=== PATIENT | female | born 1940 | race African-American/Black ===

== ENCOUNTER 2016-06-16 03:15 | Emergency (ER) | payer MEDICARE, OTHER ==
[~2016-06-16] VITALS: Ht 162.6 cm; Wt 113.4 kg
[~2016-06-16 03:15] MED LIST: AMLO10TA2 PO; ASPI-482 PO; BENA20TA2 PO; CALC600T4 PO; CELE200C PO; ESOM40CA PO; HYDR25TA9 PO; MULT-246 PO; POTA10TA5 PO
[2016-06-16] MEDS ORDERED: HYDROMORPHONE 2 MG/ML VIAL. IM ONE (04:30)
[2016-06-16] MEDS ORDERED: ONDANSETRON ODT 4 MG TAB.RAPDIS PO ONE (04:30)
[2016-06-16] MEDS ORDERED: HYDR-2678 PO (05:19)
--- NOTE | 2016-06-16 05:20 | PHYS DOC ---
Past Medical History Past Medical History: Hypertension Past Surgical History: Other Additional Past Surgical Histo: brianne. knee replacement Alcohol Use: None Drug Use: None Adult General Chief Complaint Chief Complaint: MECHANICAL FALL HPI HPI Patient is a 75 year old female who presents to the ER today after falling down approximately 3 AM. Patient reports that she was walking to the bathroom when she tripped over her blanket. Patient denies any dizziness, head trauma, loss of consciousness. Patient's only complaint is pain to her right shoulder. Patient denies any pain to her lower 70s. Patient denies any nausea vomiting diarrhea fevers shaking chills cough cold. Patient has a history of hypertension. No diabetes liver longer kidney problems. Patient has not had any surgery or chest or abdomen. Patient doesn't smoke drink or do drugs. Patient is allergic to any medications. Patient's physical exam is consistent for tenderness to palpation to her right shoulder. Patient has diminished range of motion secondary to pain. There is no bony deformity. Neurovascularly patient is intact. Patient has no tenderness to palpation or range of motion to her elbow or wrist. Patient has no tenderness to palpation to her lower extremities are hip/pelvis. No evidence of any head trauma C-spine T-spine or L-spine pain. Patient's x-ray of her right shoulder is negative for acute fracture. Patient's clavicles negative for fracture. Results were discussed with the patient. Patient was placed in an arm sling. Range of motion exercises were discussed with the patient. Patient be sent home with Lortab. Review of Systems Review of Systems Constitutional: Denies fever or chills [] Eyes: Denies change in visual acuity, redness, or eye pain [] HENT: Denies nasal congestion or sore throat [] Review of systems are negative except as documented in the history of present illness portion. Current Medications Current Medications Current Medications Medications (Trade) Dose Ordered Sig/Kofi Start Time Stop Time Status Last Admin Dose Admin Hydromorphone HCl (Dilaudid) 1 mg 1X ONCE 06/16/16 04:30 06/16/16 04:31 DC 06/16/16 04:17 1 MG Ondansetron HCl (Zofran Odt) 4 mg 1X ONCE 06/16/16 04:30 06/16/16 04:31 DC 06/16/16 04:17 4 MG Allergies Allergies Allergies Coded Allergies Type Severity Reaction Last Updated Verified No Known Drug Allergies 12/15/14 No Physical Exam Physical Exam Constitutional: Well developed, well nourished, no acute distress, non-toxic appearance. [] HENT: Normocephalic, atraumatic, bilateral external ears normal, oropharynx moist, no oral exudates, nose normal. [] Eyes: PERRLA, EOMI, conjunctiva normal, no discharge. [] Neck: Normal range of motion, no tenderness, supple, no stridor. [] Cardiovascular:Heart rate regular rhythm, Lungs & Thorax: Bilateral breath sounds clear to auscultation [] Abdomen: Bowel sounds normal, soft, no tenderness, no masses, no pulsatile masses. [] Skin: Warm, dry, no erythema, no rash. [] Back: No tenderness, no CVA tenderness. [] Extremities: Tenderness to palpation to her right shoulder. Neurologic: Alert and oriented X 3, normal motor function, normal sensory function, no focal deficits noted. [] Psychologic: Affect normal, judgement normal, mood normal. [] Current Patient Data Vital Signs Vital Signs Date Time Temp Pulse Resp B/P Pulse Ox O2 Delivery O2 Flow Rate FiO2 06/16/16 03:15 97.9 54 16 165/83 95 Room Air 97.9 EKG EKG [] Radiology/Procedures Radiology/Procedures [] Right shoulder x-rays negative for fracture. Course & Med Decision Making Course & Med Decision Making Pertinent Labs and Imaging studies reviewed. (See chart for details) [] This is a 75-year-old female with right shoulder injury after a fall. Please see above for full assessment and plan. Dragon Disclaimer Dragon Disclaimer This electronic medical record was generated, in whole or in part, using a voice recognition dictation system. Departure Departure Impression: Primary Impression: Contusion of right shoulder Additional Impression: Shoulder sprain Disposition: HOME, SELF-CARE Condition: IMPROVED Referrals: SRUTHI TIMMONS MD (PCP) Patient Instructions: Arm Sling Use-Brief, Contusion, Fall Prevention and Home Safety, Shoulder Sprain Scripts Hydrocodone/Acetaminophen (Lortab 5-325 mg Tablet)1 Each Tablet1 Tab PO PRN Q6HRS PRN PAIN #20 TAB Prov:WALLY GONZALES MD 06/16/16 Problem Qualifiers WALLY GONZALES MD Jun 16, 2016 05:20
[2016-06-16 05:30] VITALS: BP 115/64
--- NOTE | 2016-06-16 07:29 | RAD ---
Right shoulder, 3 views, 06/16/2016: History: Fall, shoulder pain There are degenerative changes at the glenohumeral articulation with subchondral sclerosis, cyst formation and spurring. There is poor definition of the cortex along the posterior margin of the humeral head on the lateral view. No definite acute fracture or dislocation is identified. IMPRESSION: 1. Moderate glenohumeral degenerative change. 2. No acute bony abnormality is detected. 3. If shoulder pain persists, radiographic follow-up in 7-10 days may be useful in excluding an occult fracture.
== END 2016-06-16 06:20 | disposition home or self-care (01) ==
LOC: ER 03:15
DX: S43.401A Unspecified sprain of right shoulder joint, initial encounter (principal); I10 Essential (primary) hypertension; W01.0XXA Fall on same level from slipping, tripping and stumbling without subsequent striking against object, initial encounter; Y93.01 Activity, walking, marching and hiking; Y92.89 Other specified places as the place of occurrence of the external cause; Y99.8 Other external cause status
CPT/HCPCS: 73030; 96372; 99284; J1170; Q0162

== ENCOUNTER → 2016-11-22 | Outpatient (CLI) | payer MEDICARE, OTHER ==
[~2016-11-22] MED LIST changes: +HYDR-2678 PO
--- NOTE | 2016-11-22 14:43 | RAD ---
Indication: Chronic bilateral lower extremity swelling. Grayscale, color-flow and duplex Doppler evaluation of bilateral lower extremity deep venous systems was performed. FINDINGS: There is no evidence of right or left lower extremity DVT. Both lower extremity deep venous systems showed normal compressibility with normal response to augmentation and Valsalva. No fluid collection or mass is detected. IMPRESSION: No evidence of right or left lower extremity DVT.
== END | disposition home or self-care (01) ==
LOC: US 13:54
PROVIDERS: ATTEND Nurse Practitioner Occupational Health
DX: M25.461 Effusion, right knee (principal); M25.462 Effusion, left knee; M25.561 Pain in right knee
CPT/HCPCS: 93970

== ENCOUNTER → 2016-11-29 | Outpatient (CLI) | payer MEDICARE, OTHER ==
[~2016-11-29] MED LIST changes: +IOHEXOL 300 MG/ML 100ML VIAL. IV ONE
--- NOTE | 2016-11-29 13:28 | KCIC ---
Examination: CT angiography chest HISTORY: History of elevated d-dimer, shortness of breath COMPARISON: None available TECHNIQUE: Axial CT angiography images were performed with IV contrast. Coronal sagittal 3-D MIP reformats are performed. Exposure: One or more of the following individualized dose reduction techniques were utilized for this examination: 1. Automated exposure control 2. Adjustment of the mA and/or kV according to patient size 3. Use of iterative reconstruction technique. FINDINGS: The visualized thyroid gland grossly appears unremarkable. The central airways are patent. Diffuse coronary artery calcifications identified. There is no evidence of filling defect identified in the main pulmonary arterial trunk and right and left main pulmonary arteries. The visualized lobar, segmental branches of the pulmonary arteries demonstrate no evidence of filling defects. There is minimal groundglass airspace opacities identified in the right upper lobe of the lung medially. No evidence of pleural effusion or pneumothorax. There is a tiny 3 mm nodule or lymph node identified in the right upper lobe of the lung. Minimal bibasilar lung atelectasis. The visualized liver, spleen, adrenals grossly appears unremarkable. Partially visualized cystic structure identified in the left kidney measuring 3.9 cm. Tortuous appearing descending thoracic aorta. Moderate degenerative changes thoracic spine. IMPRESSION: 1. No evidence of pulmonary embolism. 2. Minimal groundglass airspace opacities identified in the right upper lobe of the lung medially likely atelectasis. Minimal bibasilar lung atelectasis. 3. A 3 mm nodule or lymph node identified in the right upper lobe of the lung. Follow-up CT in 6-12 months is recommended to document stability. 4. Coronary artery calcifications. Electronically signed by: Fernando Lyon MD (11/29/2016 1:24 PM) [id number]
== END | disposition home or self-care (01) ==
LOC: KCIC CT 10:30
PROVIDERS: ATTEND Nurse Practitioner Occupational Health
DX: I25.10 Atherosclerotic heart disease of native coronary artery without angina pectoris (principal); J98.11 Atelectasis; R79.1 Abnormal coagulation profile; R06.02 Shortness of breath
CPT/HCPCS: 71275; 82565; Q9967

== ENCOUNTER → 2017-01-20 | Outpatient (CLI) | payer MEDICARE, OTHER ==
[~2017-01-20] MED LIST changes: -IOHEXOL 300 MG/ML 100ML VIAL. IV ONE
--- NOTE | 2017-01-20 10:08 | CARD ---
APPROVED REPORT EXAM: Two-dimensional and M-mode echocardiogram with Doppler and color Doppler. Other Information Quality : Good Rhythm : NSR INDICATION Dyspnea on exertion RISK FACTORS Hypertension Obesity 2D DIMENSIONS RVDd3.7 (2.9-3.5cm)Left Atrium(2D)3.5 (1.6-4.0cm) IVSd1.3 (0.7-1.1cm)Aortic Root(2D)3.1 (2.0-3.7cm) LVDd4.4 (3.9-5.9cm)LVOT Diameter2.3 (1.8-2.4cm) PWd1.3 (0.7-1.1cm)LVDs2.7 (2.5-4.0cm) FS (%) 37.4 %SV58.5 ml LVEF(%)67.7 (>50%) Aortic Valve AoV Peak Markel.127.9cm/sAoV VTI21.9cm AO Peak GR.6.5mmHgLVOT Peak Markel.108.2cm/s AO Mean GR.3mmHgAVA (VMAX)3.46cm2 Mitral Valve MV E Lbjdxkij64.4cm/sMV E Peak Gr.3mmHg MV DECEL [id number] A Gfojajjm05.6cm/s MV E Mean Gr.1mmHgE/A Ratio0.6 MV A [id number] Pulmonary Valve PV Peak Excnfgdv965.0cm/s Tricuspid Valve TR P. Bgcbtmwl279ok/sTR Peak Gr.30mmHg Pulmonary Vein S1 Fdscdtyw12.3cm/sD2 Kjudfrkm98.3cm/s PVa lucfxqvi14mjoy LEFT VENTRICLE The left ventricle is normal size. There is mild concentric left ventricular hypertrophy. The left ve ntricular systolic function is normal and the ejection fraction is within normal range. The Ejection Fraction is 60-65%. There is normal LV segmental wall motion. Transmitral Doppler flow pattern is Gra de I-abnormal relaxation pattern. RIGHT VENTRICLE The right ventricle is mildly dilated. There is normal right ventricular wall thickness. The right ve ntricular systolic function is normal. ATRIA The left atrium is mildly dilated. The right atrium size is normal. The interatrial septum is intact with no evidence for an atrial septal defect or patent foramen ovale as noted on 2-D or Doppler imagi ng. AORTIC VALVE The aortic valve is mildly sclerotic. The aortic valve is trileaflet. Doppler and Color Flow revealed no significant aortic regurgitation. There is no significant aortic valvular stenosis. MITRAL VALVE Mitral annular calcification is mild. The mitral valve leaflets are thickened. There is no evidence o f mitral valve prolapse. There is no mitral valve stenosis. Doppler and Color Flow revealed trace gerardo ral regurgitation. TRICUSPID VALVE Doppler and Color Flow revealed trace tricuspid regurgitation. The pulmonary artery systolic pressure is estimated at 33 mmHg. PULMONIC VALVE The pulmonic valve is not well visualized but appears to open adequately. Doppler and Color Flow reve aled trace pulmonic valvular regurgitation. There is no pulmonic valvular stenosis by spectral Dopple r. GREAT VESSELS The aortic root is normal in size. The ascending aorta is normal in size. The pulmonary artery is nor mal. The IVC is normal in size and collapses >50% with inspiration. PERICARDIAL EFFUSION There is no evidence of significant pericardial effusion. Critical Notification Critical Value: No <Conclusion> There is mild concentric left ventricular hypertrophy. The left ventricular systolic function is normal and the ejection fraction is within normal range. Th e Ejection Fraction is 60-65%. There is normal LV segmental wall motion. No significant valvular disease.
== END | disposition home or self-care (01) ==
LOC: ECHO 08:45
PROVIDERS: ATTEND Internal Medicine Cardiovascular Disease
DX: I51.7 Cardiomegaly (principal); R06.09 Other forms of dyspnea
CPT/HCPCS: 93306

== ENCOUNTER → 2017-01-21 | Outpatient (CLI) | payer MEDICARE, OTHER ==
--- NOTE | 2017-01-21 13:27 | RAD ---
APPROVED REPORT Patient Location : OUT-PATIENT Indications Lower Extremity Pain : Bilateral Lower Extremity Edema : Bilateral Risk Factors Obesity Findings Grayscale images the bilateral greater and lesser saphenous veins did not reveal any evidence of thro mbus on limited images. The bilateral ankles were also evaluated and on branch scale images at the leve l of the ankles there were no significant abnormalities noted. The right great saphenous vein measures approximately 7.9 mm and does not reflux significantly. The l eft great saphenous vein measures 5.9 mm and does not reflux significantly. The bilateral lesser saph enous veins do not reveal any evidence of reflux. Critical Notification Critical Value: No <Conclusion> Negative for reflux in the bilateral lesser and greater saphenous veins
== END | disposition home or self-care (01) ==
LOC: US 09:05
PROVIDERS: ATTEND Internal Medicine Cardiovascular Disease
DX: I87.2 Venous insufficiency (chronic) (peripheral) (principal); M79.662 Pain in left lower leg; M79.661 Pain in right lower leg; R60.0 Localized edema
CPT/HCPCS: 93970

== ENCOUNTER 2017-01-31 06:24 | Outpatient (CLI) | payer MEDICARE, OTHER ==
[2017-01-31] VITALS (11 sets, daily range): BP systolic 96–128; BP diastolic 62–82
[~2017-01-31] VITALS: Ht 162.6 cm; Wt 113.4 kg
[2017-01-31] MEDS ORDERED: SPIR50TA2 PO (07:00)
[2017-01-31] MEDS ORDERED: OMEP40CA5 PO (07:00)
[2017-01-31 07:16] LABS: HEMATOCRIT 38.9 % (36.0-47.0); RED BLOOD COUNT 4.05 x10^6/uL (3.50-5.40); RED CELL DISTRIBUTION WIDTH 13.7 % (11.5-14.5)
[2017-01-31 07:22] LABS: CREATININE 1.2 mg/dL (0.6-1.0); GFR 52.9; POTASSIUM 4.6 mmol/L (3.5-5.1)
[2017-01-31 07:30] LABS: INR 1.1 (0.8-1.1); PROTHROMBIN TIME PATIENT 13.1 SEC (11.7-14.0)
[2017-01-31] MEDS ORDERED: LIDOCAINE 2% 20 ML VIAL. ONE (07:41)
[2017-01-31] MEDS ORDERED: IOHEXOL 300 MG/ML 100ML VIAL. ONE (07:41)
[2017-01-31] MEDS ORDERED: NITROGLYCERIN 200 MCG/2 ML SYRINGE FOR CATH/VASC LAB. ONE (07:52)
[2017-01-31] MEDS ORDERED: HEPARIN for IV BOLUS 10,000 UNIT/10 ML VIAL. ONE (07:52)
[2017-01-31] MEDS ORDERED: VERAPAMIL 5 MG/2 ML VIAL. ONE (07:52)
[2017-01-31] MEDS ORDERED: fentaNYL PF VIAL 100 MCG/2 ML VIAL ONE (07:52)
[2017-01-31] MEDS ORDERED: MIDAZOLAM HCL/PF 5 MG/5 ML VIAL. ONE (07:52)
[2017-01-31] MEDS ORDERED: LIDOCAINE 2% 20 ML VIAL. IJ ONE (08:15)
[2017-01-31] MEDS ORDERED: fentaNYL PF VIAL 100 MCG/2 ML VIAL IV ONE (08:15)
[2017-01-31] MEDS ORDERED: IOHEXOL 300 MG/ML 100ML VIAL. IART ONE (08:15)
[2017-01-31] MEDS ORDERED: NITROGLYCERIN 200 MCG/2 ML SYRINGE FOR CATH/VASC LAB. IART ONE (08:15)
[2017-01-31] MEDS ORDERED: HEPARIN for IV BOLUS 10,000 UNIT/10 ML VIAL. IART ONE (08:15)
[2017-01-31] MEDS ORDERED: MIDAZOLAM HCL/PF 5 MG/5 ML VIAL. IV ONE (08:15)
[2017-01-31] MEDS ORDERED: VERAPAMIL 5 MG/2 ML VIAL. IART ONE (08:15)
[2017-01-31] MEDS ORDERED: HEPARIN for IV BOLUS 10,000 UNIT/10 ML VIAL. IV ONE (08:30)
[2017-01-31] MEDS ORDERED: IV 1/2 NORMAL SALINE 1,000 ML IV SCH (08:40)
--- NOTE | 2017-01-31 08:40 | PDOC ---
MODERATE SEDATION ASSESSMENT RISKS/ALTERNATIVES Risks/Alternatives Risks and alternatives of this type of sedation and procedure discussed with: RISK/ALTERNATIVES: Patient H & P ON CHART H & P H & P on chart and reviewed for co-morbid conditions and appropriate labs. H&P ON CHART: Yes STATUS PREG STATUS ASSESSED: N/A MEDS/ALLERGIES REVIEWED Meds/Allergies Reviewed Medications and Allergies including time and route of recently administered narcotics and sedatives. MEDS/ALLERGIES REVIEWED: Yes ASA RATING ASA RATING: II AIRWAY ASSESSMENT Airway Assessment Airway patency, oral function limitations, presence of caps, crowns, dentures, partials, and ability to extend neck assessed. AIRWAY ASSESSMENT: Yes MALLAMPATI SCORE MALLAMPATI SCORE: II PRE-SEDATION ASSESSMENT PRE-SEDATION ASSESSMENT: Yes FAINA SERVIN MD Jan 31, 2017 08:40
--- NOTE | 2017-01-31 09:04 | CARD ---
APPROVED REPORT Procedure(s) performed: 1. Left heart catheterization, selective coronary angiography via right zhao sradial approach 2. Instant wave free ratio (IFR) measurement of left circumflex artery and the obtuse marginal branc h 40 min Sedation Time INDICATION The indication(s) include : Unstable angina and positive stress test. PROCEDURE NARRATIVE After explaining the risks, benefits and alternative options, informed consent was obtained from yusra ent. Patient was brought to the cardiac [employer] and right wrist was prepped and draped in the usual fashion after confirming a positive modified Wade's test. Arterial access was obtained in the [facility] t radial artery and a 6 [place] sheath was inserted. 6 [place] Von catheter was used to perform scooter ective angiography of the left and right coronary arteries. LVEDP and transaortic gradients were krishan ured with the same catheter. Left ventriculography was not performed since recent 2-D echo showed nor mal LV function. Since patient was found to have angiographically suspicious lesions involving the left circumflex art marlene and obtuse marginal branch, a decision was made to perform physiologic assessment using instant w ave free ratio (IFR). The lesions in the left circumflex artery followed by opposite marginal branch were crossed with [employer] and IFR measurements were made that came back at 0.99 and 0.98 respectively. Hence no interventions were undertaken. Patient tolerated the procedure well . Hemostasis was achieved using TR band. There were no immediate complications. The following find ings were noted. FINDINGS 1. Hemodynamics: Left ventricular end-diastolic pressure of 27 mmHg. No pullback gradient across th e aortic valve. 2. Coronary angiography: a. The left main coronary artery arose from the left sinus of Valsalva, gave rise to the left anteri or descending and left circumflex arteries and did not show any significant stenosis. b. The left anterior descending artery did not show any significant stenosis. c. The left circumflex artery showed 50% stenosis involving the midsegment. The obtuse marginal bran ch showed 40-50% stenosis in the proximal to midsegment. These lesions were physiologically not signi ficant based on IFR measurements of 0.99 and 0.98 respectively. d. The right coronary artery was a dominant vessel arising from the right sinus of Valsalva that did not show any significant stenosis. Conclusion Nonobstructive coronary artery disease Recommendations Medical Therapy
== END 2017-01-31 11:25 | disposition home or self-care (01) ==
LOC: CCL 06:24
PROVIDERS: ATTEND Internal Medicine Cardiovascular Disease
DX: I25.10 Atherosclerotic heart disease of native coronary artery without angina pectoris (principal); K21.9 Gastro-esophageal reflux disease without esophagitis; E11.9 Type 2 diabetes mellitus without complications; D64.9 Anemia, unspecified; Z87.39 Personal history of other diseases of the musculoskeletal system and connective tissue; Z79.01 Long term (current) use of anticoagulants; Z96.653 Presence of artificial knee joint, bilateral; Z90.710 Acquired absence of both cervix and uterus
CPT/HCPCS: 36415; 80048; 85027; 85610; 85730; 93458; 93571; 93572; 99152; 99153; C1769; C1892; J1644; J2250; J3010; J3490; Q9967; J2001

== ENCOUNTER → 2017-08-01 | Outpatient (CLI) | payer MEDICARE, OTHER | END | disposition home or self-care (01) | LOC: KCIC MRI 14:55 | DX: M19.011 Primary osteoarthritis, right shoulder (principal); M25.711 Osteophyte, right shoulder; M75.81 Other shoulder lesions, right shoulder | CPT/HCPCS: 73221 ==

== ENCOUNTER → 2017-08-15 | Outpatient (CLI) | payer MEDICARE, OTHER | END | disposition home or self-care (01) | LOC: US 08:01 | DX: M79.604 Pain in right leg (principal); M79.605 Pain in left leg; R06.09 Other forms of dyspnea | CPT/HCPCS: 93970 ==

== ENCOUNTER → 2017-09-05 | Outpatient (CLI) | payer MEDICARE, OTHER | END | disposition home or self-care (01) | LOC: KCIC CT 11:04 | DX: M17.11 Unilateral primary osteoarthritis, right knee (principal) | CPT/HCPCS: 73200 ==

== ENCOUNTER → 2017-09-10 | Outpatient (CLI) | payer MEDICARE, OTHER | END | disposition home or self-care (01) | LOC: US 10:59 | DX: I82.493 Acute embolism and thrombosis of other specified deep vein of lower extremity, bilateral (principal); Z98.890 Other specified postprocedural states | CPT/HCPCS: 93970 ==

== ENCOUNTER → 2017-11-17 | Outpatient (CLI) | payer MEDICARE, OTHER | END | disposition home or self-care (01) | LOC: KCIC CT 11:05 | DX: M47.894 Other spondylosis, thoracic region (principal); I25.10 Atherosclerotic heart disease of native coronary artery without angina pectoris; I77.810 Thoracic aortic ectasia; N28.89 Other specified disorders of kidney and ureter; R91.1 Solitary pulmonary nodule | CPT/HCPCS: 71250 ==

== ENCOUNTER → 2018-02-20 | Day surgery (SDC) | payer MEDICARE, OTHER ==
[~2018-02-20] MED LIST changes: -AMLO10TA2 PO; +AMLO10TA6 PO; -BENA20TA2 PO; +BENA20TA4 PO; +CHOL100013 PO; +IV RINGERS,LACTATED 1000ML 1,000 ML IV SCH; +LIDOCAINE 2% PF 2ML VIAL. ONE; +OMEP40CA5 PO; +POTA10TA12 PO; -POTA10TA5 PO; +PROPOFOL 20 ML IV ONE; +ROPI0.5T PO; +SPIR50TA4 PO
--- NOTE | 2018-02-20 09:25 | HP ---
ADMIT DATE: 02/20/2018 REFERRING PHYSICIAN: Dr. Whyte. REASON: Anemia. HISTORY OF PRESENT ILLNESS: A 77-year-old -[place] female with past medical history significant for hypertension, osteoarthrosis, is seen with anemia. She had maroon stools, with the hospital hemoglobin of 10.6. Prior colonoscopy in 2014 was without polyps. Her heme stools were positive. BUN of 37. INR is 1.2. With this, upper endoscopy is recommended with persistent epigastric pain. PAST MEDICAL HISTORY: Hypertension and anemia. ALLERGIES: None. MEDICATIONS: Include amlodipine, aspirin, benazepril, Celebrex, vitamin D, hydrochlorothiazide, Requip, spironolactone. FAMILY AND SOCIAL HISTORY: Significant for hypertension with multiple family members. SOCIAL HISTORY: Does not drink or smoke. PAST SURGICAL HISTORY: Noncontributory. REVIEW OF SYSTEMS: As per records. PHYSICAL EXAMINATION: GENERAL: Reveals a well-nourished, well-developed -[place] female, who is alert and cooperative, in no acute distress. VITAL SIGNS: Temperature is 97.2, pulse 64, respirations 20. HEENT: Reveals normocephalic and atraumatic head. Pupils and extraocular muscles are not tested. Sclerae anicteric. NECK: Supple. LUNGS: Clear. CARDIOVASCULAR: Reveals an S1, S2 without S3, S4 or appreciable murmur. ABDOMEN: Reveals a soft abdomen, normal bowel sounds without appreciable hepatosplenomegaly. Epigastric tenderness to deep palpation. EXTREMITIES: Reveals no cyanosis, clubbing, edema. IMPRESSION: Anemia, etiology is to be determined. Upper endoscopy today with epigastric pain to assess for ulcer disease, celiac disease, gastroparesis, malignancy, cirrhosis with varices. If this is unrevealing, interval CBC and possible interval colonoscopy will be pursued. OSWALD FELIX MD DR: QASIM/ranjith JOB#: [id number] / [id number]
[2018-02-20 09:35] VITALS: BP 115/55
[2018-02-20 10:02] LABS: BASO % 1 % (0-3); EOS # 0.2 x10^3/uL (0.0-0.7); EOS % 2 % (0-3); HEMATOCRIT 31.3 % (36.0-47.0); HEMOGLOBIN 10.5 g/dL (12.0-15.5); LYMPH # 2.1 x10^3/uL (1.0-4.8); LYMPH % 30 % (24-48); MEAN CORPUSCULAR HEMOGLOBIN 32 pg (25-35); MEAN CORPUSCULAR HGB CONC 34 g/dL (31-37); MEAN CORPUSCULAR VOLUME 95 fL (79-100); MONO # 0.5 x10^3/uL (0.0-1.1); MONO % 8 % (0-9); NEUT # 4.3 x10^3uL (1.8-7.7); NEUT % 60 % (31-73); PLATELET COUNT 271 x10^3/uL (140-400); RED BLOOD COUNT 3.28 x10^6/uL (3.50-5.40); RED CELL DISTRIBUTION WIDTH 13.8 % (11.5-14.5); WHITE BLOOD COUNT 7.2 x10^3/uL (4.0-11.0)
--- NOTE | 2018-02-23 16:10 | PATHOLOGY ---
[facility] Accession Number: [id number] . 01 Material submitted: . GASTRIC BX R/O H. PYLORI . 01 Clinician provided ICD-10: D64.9 K92.2 . 01 Clinical history: . Anemia, GI bleed . 02 Diagnosis: Gastric biopsies: - Mild chronic gastritis, focally active. LBQ/02/23/2018 . 02 Comment: Sections of the gastric biopsy reveal segments of gastric body mucosa showing congestion, and superficial and patchy foci of focally active mild chronic inflammation. A properly controlled immunoperoxidase stain for Helicobacter is negative for Helicobacter organisms. There is no evidence of malignancy. (JPM/db; 02/23/18) . Special stain performed: Immunoperoxidase stain for Helicobacter . 02 Electronically signed: . Mathew Price MD, Pathologist NPI- [id number] . 01 Gross description: . Received in formalin labeled "Toby, Gloria, gastric BX," are 2 segments of ivory soft tissue measuring 0.9 x 0.2 x 0.2 cm in aggregate dimensions and ranging from 0.4 to 0.5 cm in maximum dimension. The specimen is submitted entirely in cassette A1. (TSD; 02/20/2018) TOB/TOB . 02 Pathologist provided ICD-10: K29.50 . 02 CPT . 905397, [id number] Specimen Comment: A courtesy copy of this report has been sent to Specimen Comment: [phone]. Specimen Comment: Report sent to / DEMETRIO Performed at: 01 [facility] [address], [place], [place] [id number] MD Alon Vasquez MD Phone: [phone] Performed at: 02 [facility] [address], [place] [id number] MD Mathew Price MD Phone: [phone]
== END | disposition home or self-care (01) ==
LOC: ENDOS 07:01
PROVIDERS: ATTEND Internal Medicine Gastroenterology
DX: K29.50 Unspecified chronic gastritis without bleeding (principal); K26.4 Chronic or unspecified duodenal ulcer with hemorrhage; D50.9 Iron deficiency anemia, unspecified; I10 Essential (primary) hypertension; M19.90 Unspecified osteoarthritis, unspecified site; Z98.84 Bariatric surgery status; Z79.82 Long term (current) use of aspirin; Z79.899 Other long term (current) drug therapy; Z82.49 Family history of ischemic heart disease and other diseases of the circulatory system
CPT/HCPCS: 36415; 43239; 43255; 85025; 88305; 88342; J2001; J2704

== ENCOUNTER → 2018-03-23 | Outpatient (CLI) | payer MEDICARE, OTHER ==
[2018-02-20 09:35] VITALS: BP 115/55
[~2018-03-23] MED LIST changes: +IOHEXOL 240 MG/ML 50ML VIAL. PO ONE; +IOHEXOL 300 MG/ML 100ML VIAL. IV ONE; -IV RINGERS,LACTATED 1000ML 1,000 ML IV SCH; -LIDOCAINE 2% PF 2ML VIAL. ONE; -PROPOFOL 20 ML IV ONE
--- NOTE | 2018-03-23 13:03 | KCIC ---
CT abdomen and pelvis with contrast History: Upper back pain, bloody stools, kidney stones Technique: After the administration of oral and intravenous contrast, CT imaging was performed of the abdomen and pelvis. Multiplanar images are reviewed. Exposure: One or more of the following individualized dose reduction techniques were utilized for this examination: 1. Automated exposure control 2. Adjustment of the mA and/or kV according to patient size 3. Use of iterative reconstruction technique. Contrast: 100 cc Omnipaque 300 Comparison: January 18, 2018 Findings: There is no new abnormality of the limited visualized lung bases. There are again postsurgical changes of stomach. There is no new focal abnormality of the liver or spleen. There is visualization of the pancreatic duct as seen previously estimated about 0.4 cm. There is nonspecific somewhat heterogeneous appearance of the pancreatic head. There has been cholecystectomy as seen previously. There is a 4.1 cm left renal cyst and 0.5 cm inferior left renal calculus as seen previously. There is no adrenal nodularity. Bowel is not significantly dilated. There is no free air or free fluid. There is small fat-containing umbilical hernia, no internal bowel. There is multilevel facet degenerative change as well as multilevel advanced lumbar degenerative disc disease. There is probable at least moderate spinal stenosis L3-4, also degree of lateral recess stenosis at L4-5 and L2-3. There is neural foramina compromise greatest on the right at L3-4 and L4-5 and L1-2 and on the left at L5-S1. Impression: 1. There is nonspecific somewhat heterogeneous appearance of the pancreatic head, no significant adjacent inflammatory change to confidently suggest pancreatitis although included in differential considerations. Underlying mass is considered less likely although difficult to entirely exclude by this exam. Correlation with laboratory findings is advised. Given the heterogeneous appearance, MRI evaluation may be beneficial. No significant inflammatory change is identified associated with the bowel. 2. There is again left renal cyst and small nonobstructive left renal calculus. 3. There is multilevel degenerative disc disease and facet degenerative change of the lumbar spine with probable moderate spinal stenosis at L3-4, also multilevel lumbar neural foramina compromise. Electronically signed by: Farooq Smith MD (03/23/2018 1:00 PM) [facility]-KCIC1
== END | disposition home or self-care (01) ==
LOC: KCIC CT 09:16
PROVIDERS: ATTEND Internal Medicine Gastroenterology
DX: M51.36 Other intervertebral disc degeneration, lumbar region (principal); N20.0 Calculus of kidney; N28.1 Cyst of kidney, acquired; K42.9 Umbilical hernia without obstruction or gangrene; I10 Essential (primary) hypertension; E11.9 Type 2 diabetes mellitus without complications; Z90.49 Acquired absence of other specified parts of digestive tract
CPT/HCPCS: 74177; 82565; Q9966; Q9967

== ENCOUNTER → 2018-04-07 | Outpatient (CLI) | payer MEDICARE, OTHER ==
[2018-02-20 09:35] VITALS: BP 115/55
[~2018-04-07] MED LIST changes: -IOHEXOL 240 MG/ML 50ML VIAL. PO ONE; -IOHEXOL 300 MG/ML 100ML VIAL. IV ONE
--- NOTE | 2018-04-07 10:04 | KCIC ---
Indication: Abnormal CT/pancreatic lesion. TECHNIQUE: Axial in and out of phase, axial and coronal T2-weighted, axial T1-weighted image sequences obtained of the abdomen without IV contrast. MRCP was performed with 3-D volume rendered. COMPARISON: CT abdomen pelvis from 03/23/2018 FINDINGS: Liver is normal in morphology without hepatic steatosis. No abnormal T2 signal seen in the liver. No intra or extrahepatic biliary duct dilation. No filling defects seen in the CBD. Heart is normal in size. No pericardial or pleural effusion. Main pancreatic duct is within normal limits. No peripancreatic or pancreatic edema. The intrinsic T1 signal is preserved in the pancreas. There is loss of signal on out of phase images in the pancreatic head when compared to in phase images suggesting focal fat infiltration. The adrenal glands demonstrates no nodularity. No hydronephrosis. 4.1 x 3.7 cm simple cyst is seen in the upper pole of the left kidney. Other subcentimeter simple cyst is seen in the origin of the left kidney. Postsurgical changes are seen in the stomach. Spleen is unenlarged. Mild dextroscoliosis of the lower thoracic spine. IMPRESSION: Limited exam due to lack of IV contrast. 1. No apparent pancreatic mass. 2. Heterogeneity seen in the pancreatic head on the CT suggests focal fat infiltration. Electronically signed by: Ricardo Triplett DO (04/07/2018 10:01 AM) [id number]
== END | disposition home or self-care (01) ==
LOC: KCIC MRI 07:33
PROVIDERS: ATTEND Internal Medicine Gastroenterology
DX: R93.89 Abnormal findings on diagnostic imaging of other specified body structures (principal); N28.1 Cyst of kidney, acquired; M41.84 Other forms of scoliosis, thoracic region; Z98.890 Other specified postprocedural states
CPT/HCPCS: 74181

== ENCOUNTER 2019-09-08 19:30 | Emergency (ER) | payer MEDICARE, OTHER ==
[~2019-09-08] VITALS: Ht 166.4 cm; Wt 113.0 kg
[~2019-09-08 19:30] MED LIST changes: -AMLO10TA6 PO; +AMLO10TA8 PO; +HYDR-2145 PO; -HYDR25TA9 PO; +OMEP40CA45 PO; -OMEP40CA5 PO
[2019-09-08] MEDS ORDERED: IV NORMAL SALINE 1000ML BAG 1,000 ML IV ONE (20:15)
[2019-09-08] MEDS ORDERED: ACETAMINOPHEN 500 MG TABLET PO ONE (20:15)
[2019-09-08 20:25] LABS: BASO % 0 % (0-3); EOS % 0 % (0-3); HEMATOCRIT 39.2 % (36.0-47.0); LYMPH # 1.1 x10^3/uL (1.0-4.8); LYMPH % 20 % (24-48); MEAN CORPUSCULAR HEMOGLOBIN 32 pg (25-35); MEAN CORPUSCULAR HGB CONC 33 g/dL (31-37); MEAN CORPUSCULAR VOLUME 95 fL (79-100); MONO # 0.5 x10^3/uL (0.0-1.1); MONO % 10 % (0-9); NEUT # 3.8 x10^3/uL (1.8-7.7); NEUT % 70 % (31-73); PLATELET COUNT 189 x10^3/uL (140-400); RED BLOOD COUNT 4.13 x10^6/uL (3.50-5.40); RED CELL DISTRIBUTION WIDTH 14.6 % (11.5-14.5); WHITE BLOOD COUNT 5.4 x10^3/uL (4.0-11.0)
[2019-09-08 20:31] LABS: CREATININE 1.3 mg/dL (0.6-1.0); GFR 47.8; POTASSIUM 3.5 mmol/L (3.5-5.1)
[2019-09-08 20:37] LABS: ALBUMIN 3.1 g/dL (3.4-5.0); ALBUMIN/GLOBULIN RATIO 0.8 (1.0-1.7); TOTAL BILIRUBIN 0.9 mg/dL (0.2-1.0)
[2019-09-08 20:40] LABS: INFLUENZA A PATIENT NEGATIVE (NEGATIVE); INFLUENZA B PATIENT NEGATIVE (NEGATIVE)
[2019-09-08 20:53] LABS: BILIRUBIN,URINE SMALL (NEG); CLARITY,URINE CLEAR; COLOR,URINE AMBER; NITRITE,URINE NEGATIVE (NEG); PROTEIN,URINE 100 mg/dL (NEG-TRACE)
[2019-09-08 20:59] LABS: AMORPHOUS SEDIMENT,UR PRESENT /HPF; BACTERIA,URINE 0 /HPF (0-FEW); HYALINE CASTS, URINE FEW /HPF; SQUAMOUS EPITHELIAL CELL,UR MOD /LPF
--- NOTE | 2019-09-08 21:02 | RAD ---
Exam: Chest one view INDICATION: Port of TECHNIQUE: Frontal view of the chest Comparisons: CT chest 11/17/2017 FINDINGS: The cardiomediastinal silhouette and pulmonary vessels are within normal limits. The lung and pleural spaces are clear. Partial visualization of right shoulder arthroplasty. IMPRESSION: No acute pulmonary process. Electronically signed by: Joellen Fuentes MD (09/08/2019 8:59 PM) [id number]
[2019-09-08 21:31] VITALS: BP 139/82
--- NOTE | 2019-09-08 21:48 | PHYS DOC ---
Past Medical History Past Medical History: Hypertension Past Surgical History: Other Additional Past Surgical Histo: brianne. knee replacement; shoulder Smoking Status: Never Smoker Alcohol Use: None Drug Use: None General Adult EDM: Chief Complaint: SHORTNESS OF BREATH HPI: HPI: Patient is a 79 year old female with a history of hypertension who presents to the ED today complaining of generalized weakness, shortness of breath and nausea, symptoms have been going on for over 2 weeks. Patient denies any cough or congestion. Denies any exposure to COVID-19 patients. Denies any recent travel. Review of Systems: Review of Systems: Constitutional: Reports generalized weakness Eyes: Denies change in visual acuity. [] HENT: Denies nasal congestion or sore throat. [] Respiratory: Reports shortness of breath, denies coughing Cardiovascular: Denies chest pain or edema. [] GI: Denies abdominal pain, nausea, vomiting, bloody stools or diarrhea. [] : Denies dysuria. [] Musculoskeletal: Denies back pain or joint pain. [] Integument: Denies rash. [] Neurologic: Denies headache, focal weakness or sensory changes. [] Endocrine: Denies polyuria or polydipsia. [] Lymphatic: Denies swollen glands. [] Psychiatric: Denies depression or anxiety. [] Heart Score: Risk Factors: Risk Factors: DM, Current or recent (<one month) smoker, HTN, HLP, family history of CAD, obesity. Risk Scores: Score 0 - 3: 2.5% MACE over next 6 weeks - Discharge Home Score 4 - 6: 20.3% MACE over next 6 weeks - Admit for Clinical Observation Score 7 - 10: 72.7% MACE over next 6 weeks - Early Invasive Strategies Current Medications: Current Medications Medications (Trade) Dose Ordered Sig/Kofi Start Time Stop Time Status Last Admin Dose Admin Acetaminophen (Tylenol) 1,000 mg 1X ONCE 09/08/19 20:15 09/08/19 20:19 DC 09/08/19 20:38 1,000 MG Sodium Chloride 1,000 ml @ 1,000 mls/hr 1X ONCE 09/08/19 20:15 09/08/19 21:14 DC 09/08/19 20:38 1,000 MLS/HR Allergies: Allergies: Allergies Coded Allergies Type Severity Reaction Last Updated Verified No Known Drug Allergies 02/20/18 No Physical Exam: PE: Constitutional: Well developed, well nourished, no acute distress, non-toxic appearance. [] HENT: Normocephalic, atraumatic, bilateral external ears normal, oropharynx moist, no oral exudates, nose normal. [] Eyes: PERRLA, EOMI, conjunctiva normal, no discharge. [] Neck: Normal range of motion, no tenderness, supple, no stridor. [] Cardiovascular:Heart rate regular rhythm, no murmur [] Lungs & Thorax: Bilateral breath sounds clear to auscultation [] Abdomen: Bowel sounds normal, soft, no tenderness, no masses, no pulsatile masses. [] Skin: Warm, dry, no erythema, no rash. [] Back: No tenderness, no CVA tenderness. [] Extremities: No tenderness, no cyanosis, no clubbing, ROM intact, no edema. [] Neurologic: Alert and oriented X 3, normal motor function, normal sensory function, no focal deficits noted. [] Psychologic: Affect normal, judgement normal, mood normal. [] Current Patient Data: Labs: Laboratory Tests Test 09/08/19 19:58 09/08/19 20:14 09/08/19 20:35 White Blood Count 5.4 x10^3/uL (4.0-11.0) Red Blood Count 4.13 x10^6/uL (3.50-5.40) Hemoglobin 13.0 g/dL (12.0-15.5) Hematocrit 39.2 % (36.0-47.0) Mean Corpuscular Volume 95 fL (79-100) Mean Corpuscular Hemoglobin 32 pg (25-35) Mean Corpuscular Hemoglobin Concent 33 g/dL (31-37) Red Cell Distribution Width 14.6 % (11.5-14.5) H Platelet Count 189 x10^3/uL (140-400) Neutrophils (%) (Auto) 70 % (31-73) Lymphocytes (%) (Auto) 20 % (24-48) L Monocytes (%) (Auto) 10 % (0-9) H Eosinophils (%) (Auto) 0 % (0-3) Basophils (%) (Auto) 0 % (0-3) Neutrophils # (Auto) 3.8 x10^3/uL (1.8-7.7) Lymphocytes # (Auto) 1.1 x10^3/uL (1.0-4.8) Monocytes # (Auto) 0.5 x10^3/uL (0.0-1.1) Eosinophils # (Auto) 0.0 x10^3/uL (0.0-0.7) Basophils # (Auto) 0.0 x10^3/uL (0.0-0.2) Sodium Level 143 mmol/L (136-145) Potassium Level 3.5 mmol/L (3.5-5.1) Chloride Level 106 mmol/L (98-107) Carbon Dioxide Level 27 mmol/L (21-32) Anion Gap 10 (6-14) Blood Urea Nitrogen 27 mg/dL (7-20) H Creatinine 1.3 mg/dL (0.6-1.0) H Estimated GFR (Cockcroft-Gault) 47.8 BUN/Creatinine Ratio 21 (6-20) H Glucose Level 104 mg/dL (70-99) H Lactic Acid Level 1.4 mmol/L (0.4-2.0) Calcium Level 9.0 mg/dL (8.5-10.1) Total Bilirubin 0.9 mg/dL (0.2-1.0) Aspartate Amino Transferase (AST) 55 U/L (15-37) H Alanine Aminotransferase (ALT) 40 U/L (14-59) Alkaline Phosphatase 58 U/L (46-116) Creatine Kinase 175 U/L (26-192) Creatine Kinase MB (Mass) 1.5 ng/mL (0.0-3.6) Creatine Kinase MB Relative Index 0.9 % (0-4) Troponin I Quantitative 0.099 ng/mL (0.000-0.055) Total Protein 7.0 g/dL (6.4-8.2) Albumin 3.1 g/dL (3.4-5.0) L Albumin/Globulin Ratio 0.8 (1.0-1.7) L Procalcitonin < 0.10 ng/mL (0.00-0.10) Influenza Type A Antigen Negative (NEGATIVE) Influenza Type B Antigen Negative (NEGATIVE) Urine Collection Type U cath Urine Color Dolly Urine Clarity Clear Urine pH 6.0 (<5.0-8.0) Urine Specific [place] 1.025 (1.000-1.030) Urine Protein 100 mg/dL (NEG-TRACE) Urine Glucose (UA) Negative mg/dL (NEG) Urine Ketones (Stick) Trace mg/dL (NEG) Urine Blood Negative (NEG) Urine Nitrite Negative (NEG) Urine Bilirubin Small (NEG) Urine Urobilinogen Dipstick 1.0 mg/dL (0.2 mg/dL) Urine Leukocyte Esterase Negative (NEG) Urine RBC 6-10 /HPF (0-2) Urine WBC 1-4 /HPF (0-4) Urine Squamous Epithelial Cells Mod /LPF Urine Amorphous Sediment Present /HPF Urine Bacteria 0 /HPF (0-FEW) Urine Hyaline Casts Few /HPF Urine Mucus Mod /LPF Laboratory Tests 09/08/19 19:58 Laboratory Tests 09/08/19 19:58 Vital Signs: Vital Signs Date Time Temp Pulse Resp B/P (MAP) Pulse Ox O2 Delivery O2 Flow Rate FiO2 09/08/19 21:31 100.3 76 18 139/82 (101) 94 Room Air 100.3 EKG: EKG: [] Radiology/Procedures: Radiology/Procedures: []IMAGING REPORT Signed PATIENT: IRAIDA ALVAREZ ACCOUNT: [id number] : 1940 LOCATION: ER AGE: 79 SEX: F EXAM STATUS: REG ER ORD. PHYSICIAN: ZAKI DOTSON APRN REASON: SOA PROCEDURE: PORTABLE CHEST 1V Exam: Chest one view INDICATION: Port of TECHNIQUE: Frontal view of the chest Comparisons: CT chest 11/17/2017 FINDINGS: The cardiomediastinal silhouette and pulmonary vessels are within normal limits. The lung and pleural spaces are clear. Partial visualization of right shoulder arthroplasty. IMPRESSION: No acute pulmonary process. Electronically signed by: Joellen Tian MD (09/08/2019 8:59 PM) [id number] DICTATED and SIGNED BY: JOELLEN TIAN MD DATE: 09/08/192058 Course & Med Decision Making: Course & Med Decision Making Pertinent Labs and Imaging studies reviewed. (See chart for details) This is a 79-year-old female patient presenting to the ED today with generalized weakness, nausea and shortness of breath, symptoms for over 2 weeks. Vitals on arrival to the ED temperature 101.9, heart rate 83, respiration 20, O2 sats 89% on room air, patient was put on 2 L of oxygen, oxygen went up to 94%. Blood pressure 153/68. Patient is currently refusing most of her tests especially COVID 19 testing. Chest x-ray is negative for any acute findings, negative influenza AB, CBC with a normal WBC, CMP with nothing acute, troponin 0 0.099. Patient denies any chest pain, EKG is negative. Patient was offered admission to the hospital, she refused, she refused COVID-19 testing. She signed out AGAINST MEDICAL ADVICE. I was able to talk to patient before she flies out, she is alert oriented x4 and able to make her own decisions. She states she has her own PCP and will follow-up as an outpatient PCP-Isabell Haas Disclaimer: Opal Disclaimer: This electronic medical record was generated, in whole or in part, using a voice recognition dictation system. COVID-19 Patient Risks: Age 65 or older: Yes Sign of co-morbidity: Yes Exp to person + for COVID: No Exp to PUI: No Travel from affected area: No Lower respiratory symptoms: Yes Fever: Yes Other: No PPE Use: Full PPE with N95 mask or PAPR: Yes Departure Departure Impression: Primary Impression: Fever Qualified Codes: R50.9 - Fever, unspecified Additional Impressions: Shortness of breath Weakness Nausea Disposition: 07 AGAINST MEDICAL ADVICE Condition: STABLE Referrals: PEPE ATKINSON (PCP) ZAKI DOTSON APRN Sep 08, 2019 21:48
--- NOTE | 2019-09-09 07:20 | EKG ---
[facility] [address] [place] [address] Test Date: 2019-09-08 Test Time: 20:11:52 Pat Name: IRAIDA ALVAREZ Department: Room: Gender: [employer]: : 1940 Requested By: ZAKI DOTSON Order Number: [id number] Reading MD: Conrad Rodriguez Measurements Intervals [place] Rate: P: ME: QRS: QRSD: T: QT: QTc: Interpretive Statements SINUS RHYTHM PACS RBBB NONSPECIFIC ST T WAVE CHANGES Electronically Signed On 09-10-2019 10:14:38 CDT by Conrad Rodriguez
== END 2019-09-08 22:18 | disposition left against medical advice (07) ==
LOC: ER 19:30
DX: R50.9 Fever, unspecified (principal); R06.02 Shortness of breath; R53.1 Weakness; R11.10 Vomiting, unspecified; I10 Essential (primary) hypertension; Z98.890 Other specified postprocedural states
CPT/HCPCS: 36415; 71045; 80053; 81001; 82553; 83605; 84145; 84484; 85025; 87040; 87804; 93005; 99285; J7030

== ENCOUNTER → 2020-12-18 | Outpatient (CLI) | payer MEDICARE, OTHER ==
[~2020-12-18] MED LIST changes: +AMLO-187 PO; -AMLO10TA8 PO; -CALC600T4 PO; +CALC600T60 PO; -OMEP40CA45 PO; +OMEP40CA7 PO
--- NOTE | 2020-12-18 13:43 | KCIC ---
XR FOOT_LEFT 3 VIEWS DATE: 12/18/2020 9:23 AM INDICATION: Foot pain, recent injury. / Spl. Instructions: Pt stubbed 5th digit. Pain and swelling, hurts to bear wt. / History: COMPARISON: None. FINDINGS: Bones: Acute nondisplaced fracture of the fifth proximal phalanx shaft. Posterior and plantar calcane al enthesophytes. Joints: Mild degenerative changes of the midfoot. Miscellaneous: None. IMPRESSION: Acute nondisplaced fifth proximal phalanx fracture Electronically signed by: Farooq Rios MD (12/18/2020 1:40 PM) [id number]
== END ==
LOC: KCIC 09:16
PROVIDERS: ATTEND Family Medicine
DX: S92.515A Nondisplaced fracture of proximal phalanx of left lesser toe(s), initial encounter for closed fracture (principal); M19.072 Primary osteoarthritis, left ankle and foot; M77.32 Calcaneal spur, left foot; X58.XXXA Exposure to other specified factors, initial encounter; Y93.89 Activity, other specified; Y92.89 Other specified places as the place of occurrence of the external cause; Y99.8 Other external cause status
CPT/HCPCS: 73630